=== PATIENT | female | born 1945 | race Caucasian/White ===

== ENCOUNTER → 2018-08-21 | Outpatient (CLI) | payer MEDICARE, OTHER | LOC: M.RAD 13:17 | DX: Z12.31 Encounter for screening mammogram for malignant neoplasm of breast (principal) ==

== ENCOUNTER → 2019-10-07 | Outpatient (CLI) | payer MEDICARE, OTHER | LOC: M.RAD 12:34 | DX: Z12.31 Encounter for screening mammogram for malignant neoplasm of breast (principal) ==